=== PATIENT | male | born 1995 | race Caucasian/White ===

== ENCOUNTER 2016-12-18 16:46 | Emergency (ER) | payer SELFPAY ==
[~2016-12-18] VITALS: Ht 175.3 cm; Wt 73.8 kg
[2016-12-18 16:53] VITALS: Ht 175.3 cm; Wt 73.8 kg
[2016-12-18] MEDS ORDERED: MTR800 PO (17:08)
[2016-12-18] MEDS ORDERED: KETOROLAC TROMETHAMINE 30 MG/ML VIAL IV STA (17:23)
[2016-12-18] MEDS ORDERED: SODIUM CHLORIDE 0.9% 1000ML 1,000 ML IV STA (17:23)
[2016-12-18 18:00] LABS: BASO % 0.7 %; BASO ABS # 0.05 K/uL (0-0.2); COMPLETE YES; EOS % 4.8 %; HEMATOCRIT 45.7 % (42-52); IG% 0.1 %; LYMPH % 41.4 %; LYMPH ABS # 2.86 K/uL (1.2-3.4); MEAN CORPUSCULAR HEMOGLOBIN 31.9 pg (25-34); MEAN PLATELET VOLUME 9.7 fL (7.4-10.4); MONO % 10.6 %; NEUT % 42.4 %; PLATELET COUNT 230 K/uL (130-400); RED BLOOD COUNT 5.02 M/uL (4.7-6.1)
[2016-12-18 18:10] LABS: URINE APPEARANCE TURBID (CLEAR); URINE BILIRUBIN NEG (NEG); URINE COLOR YELLOW; URINE EPITHELIAL CELL AUTO 0-5 /lpf (0-5); URINE NITRITE NEG (NEG); URINE SPECIFIC GRAVITY 1.019 (1.000-1.030); UROBILINOGEN NEG (NEG); ZZUR CULT IF INDIC CLEAN CATCH NO
--- NOTE | 2016-12-18 18:11 | DIAGNOSTIC IMAGING REPORT ---
HEAD CT NONCONTRAST CT DOSE: 691.05 mGy.cm HISTORY: Headache NICHOLS - confusion TECHNIQUE: Multiaxial CT images of the head were performed without the use of intravenous contrast. Comparison: None. Findings: The paranasal sinuses and mastoid air cells are clear. The calvarium and skull base are intact. The ventricles and sulci are within normal limits. There is no mass, hematoma, midline shift, or acute infarct. Impression: No acute intracranial abnormality. Electronically signed by: Binh Dietz M.D. 12/18/2016 6:10 PM Dictated Date/Time: 12/18/2016 6:10 PM
[2016-12-18 18:24] LABS: ALT/SGPT 27 U/L (12-78); AST/SGOT 18 U/L (15-37); BLOOD UREA NITROGEN 11 mg/dl (7-18); BUN/CREATININE RATIO 14.7 (10-20); CALCIUM 8.9 mg/dl (8.5-10.1); CARBON DIOXIDE 29 mmol/L (21-32); CHLORIDE 106 mmol/L (98-107); CREATININE 0.73 mg/dl (0.60-1.40); GLUCOSE 82 mg/dl (70-99); POTASSIUM 3.9 mmol/L (3.5-5.1); SODIUM 141 mmol/L (136-145)
[2016-12-18 18:25] LABS: MANUAL MICROSCOPIC REQUIRED? NO; REVIEW REQ? NO
[2016-12-18 18:26] LABS: ALKALINE PHOSPHATASE 69 U/L (45-117)
[2016-12-18 18:49] LABS: BENZODIAZEPINE, URINE NEG (NEG); COCAINE,URINE NEG (NEG); PHENCYCLIDINE, URINE NEG (NEG)
--- NOTE | 2016-12-18 19:03 | DIAGNOSTIC IMAGING REPORT ---
LUMBAR SPINE 2 OR 3 VIEWS CLINICAL HISTORY: lower back pain pain COMPARISON STUDY: None FINDINGS: Normal study IMPRESSION: Normal study Electronically signed by: Binh Dietz M.D. 12/18/2016 7:01 PM Dictated Date/Time: 12/18/2016 7:01 PM
[2016-12-18 19:46] VITALS: BP 140/89; PULSE 65; TEMP 37.1; O2SAT 100
--- NOTE | 2016-12-18 19:52 | EMERGENCY ROOM VISIT NOTE ---
History Report prepared by Lurdes: Brisa Serna Under the Supervision of: Dr. Hima Malhotra D.O. First contact with patient: 17:06 Chief Complaint: BACK PAIN Stated Complaint: BACK/LEG/KNEE PAIN, CONSTIPATION, DILATED PUPILS History of Present Illness The patient is a 21 year old male who presents to the Emergency Room with complaints of worsening lower back pain starting 1 month [employer]. 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 The patient states that he believes that he may have pinched his sciatic nerve. He states he was seen by a chiropractor but it did not improve his pain. The patient states that he is now having left hip pain and left thigh pain when he tightens or relaxes his thigh muscles. The patient states the pain does not seem to radiate down his buttock or down the back of his leg. He denies any numbness or weakness in his hands or legs. The patient states that he has been having anxiety attacks over the last few months where he feels his heart pounding, sweating palms, and shortness of breath but denies any tingling in feet or hands. The patient states that the attacks usually occur when he is thinking about dangerous activities such as climbing near power lines. He states that he has not had anxiety attacks in the past. He states that he has no past psychiatric problems and denies any suicidal or homicidal thoughts. The patient's family states that the patient has also been acting and talking differently over the last few months. She states that about 2 weeks ago the patient had an episode where he was talking but the information was very random and did not make sense in the conversation. She states that since that episode he has been acting more distant and not as interactive as well as has intermittent slurred speech. The patient states that he does not notice that this is occurring but states that all the people he interacts with has notice it. He states that he does smoke marijuana almost every day and drink alcohol but states that this does not always occur after smoking and drinking. The patient's family also states that the patient's pupils have been dilating abnormally recently. The patient states that he does not take medication regularly. He states that he did have some chest pain today but that resolved. He denies any abdominal pain, nausea, vomiting, diarrhea, or fevers. Source of History: patient, family Onset: 1 month [employer] Position: back (lower) Timing: worsening Associated Symptoms: + SOB (with anxiety attacks), + chest pain, No abdominal pain, No diarrhea, No fevers, No nausea, No vomiting Note: Associated symptoms: left hip pain, left thigh pain when he tightens or relaxes his thigh muscles, anxiety attacks with heart pounding, sweaty palms, episodes of acting and talking differently over the last few months. Patient denies tingling in hands or feet, suicidal or homicidal thoughts. Review of Systems See HPI for pertinent positives & negatives. A total of 10 systems reviewed and were otherwise negative. Past Medical & Surgical Medical Problems: (1) No Known Active Medical Problems Family History Diabetes mellitus Hypertension Social History Smoking Status: Current Every Day Smoker Alcohol Use: none Marital Status: single Housing Status: lives with family Current/Historical Medications Scheduled Ibuprofen (Ibuprofen), 800 MG PO BID Allergies Coded Allergies: No Known Allergies (Unverified , 12/18/16) Physical Exam Vital Signs Date Time Temp Pulse Resp B/P Pulse Ox O2 Delivery O2 Flow Rate FiO2 12/18/16 19:07 65 18 140/89 100 Room Air 12/18/16 16:53 37.1 84 18 135/83 98 Room Air Physical Exam GENERAL: sitting up in bed, disheveled, nontoxic, no acute distress. EYE EXAM: normal conjunctiva, PERRL and EOM's intact OROPHARYNX: no exudate, no erythema, lips, buccal mucosa, and tongue normal and mucous membranes are moist NECK: supple, no nuchal rigidity, no adenopathy, non-tender LUNGS: Clear to auscultation. Normal chest wall mechanics HEART: no murmurs, S1 normal and S2 normal ABDOMEN: abdomen soft, non-tender, normo-active bowel sounds, no masses, no rebound or guarding. BACK: Minimal tenderness in the lower/mid lumbar spine, no tenderness in the paraspinal region. SKIN: no rashes and no bruising UPPER EXTREMITIES: upper extremities are grossly normal. LOWER EXTREMITIES: No pitting edema. Flexion and extension of the hip/knee/ankle /EHL 5/5 bilaterally. Gross sensation intact, patellar and Achilles reflexes are 2/4. NEURO EXAM: Normal sensorium, cranial nerves II-XII intact, normal speech, no weakness of arms, no weakness of legs. Gross sensation intact. Drift and Finger to nose intact Medical Decision & Procedures ER Provider Diagnostic Interpretation: CT:Per my review, radiologist interpretation. HEAD CT NONCONTRAST CT DOSE: 691.05 mGy.cm HISTORY: Headache NICHOLS - confusion TECHNIQUE: Multiaxial CT images of the head were performed without the use of intravenous contrast. Comparison: None. Findings: The paranasal sinuses and mastoid air cells are clear. The calvarium and skull base are intact. The ventricles and sulci are within normal limits. There is no mass, hematoma, midline shift, or acute infarct. Impression: No acute intracranial abnormality. Electronically signed by: Binh Dietz M.D. 12/18/2016 6:10 PM Dictated Date/Time: 12/18/2016 6:10 PM Radiology results as stated below per my review and the radiologist's interpretation: LUMBAR SPINE 2 OR 3 VIEWS CLINICAL HISTORY: lower back pain pain COMPARISON STUDY: None FINDINGS: Normal study IMPRESSION: Normal study Electronically signed by: Binh Dietz M.D. 12/18/2016 7:01 PM Dictated Date/Time: 12/18/2016 7:01 PM Laboratory Results 12/18/16 17:35 Red Blood Count 5.02, Mean Corpuscular Volume 91.0, Mean Corpuscular Hemoglobin 31.9, Mean Corpuscular Hemoglobin Concent 35.0, Mean Platelet Volume 9.7, Neutrophils (%) (Auto) 42.4, Lymphocytes (%) (Auto) 41.4, Monocytes (%) (Auto) 10.6, Eosinophils (%) (Auto) 4.8, Basophils (%) (Auto) 0.7, Neutrophils # (Auto ) 2.92, Lymphocytes # (Auto) 2.86, Monocytes # (Auto) 0.73, Eosinophils # (Auto ) 0.33, Basophils # (Auto) 0.05 12/18/16 17:35 Test 12/18/16 17:30 12/18/16 17:35 Urine Color YELLOW Urine Appearance TURBID (CLEAR) Urine pH 8.0 (4.5-7.5) Urine Specific Line [place] 1.019 (1.000-1.030) Urine Protein NEG (NEG) Urine Glucose (UA) NEG (NEG) Urine Ketones NEG (NEG) Urine Occult Blood NEG (NEG) Urine Nitrite NEG (NEG) Urine Bilirubin NEG (NEG) Urine Urobilinogen NEG (NEG) Urine Leukocyte Esterase NEG (NEG) Urine WBC (Auto) 0 /hpf (0-5) Urine RBC (Auto) 0-4 /hpf (0-4) Urine Hyaline Casts (Auto) 1-5 /lpf (0-5) Urine Epithelial Cells (Auto) 0-5 /lpf (0-5) Urine Bacteria (Auto) NEG (NEG) Urine Opiates Screen NEG (NEG) Urine Methadone, Qualitative NEG (NEG) Urine Barbiturates NEG (NEG) Urine Phencyclidine (PCP) Level NEG (NEG) Ur Amphetamine/Methamphetamine NEG (NEG) MDMA (Ecstasy) Screen NEG (NEG) Urine Benzodiazepines Screen NEG (NEG) Urine Cocaine Metabolite NEG (NEG) Urine Marijuana (THC) POS (NEG) Ethyl Alcohol mg/dL < 3.0 mg/dl (0-3) White Blood Count 6.90 K/uL (4.8-10.8) Red Blood Count 5.02 M/uL (4.7-6.1) Hemoglobin 16.0 g/dL (14.0-18.0) Hematocrit 45.7 % (42-52) Mean Corpuscular Volume 91.0 fL (80-100) Mean Corpuscular Hemoglobin 31.9 pg (25-34) Mean Corpuscular Hemoglobin Concent 35.0 g/dl (32-36) Platelet Count 230 K/uL (130-400) Mean Platelet Volume 9.7 fL (7.4-10.4) Neutrophils (%) (Auto) 42.4 % Lymphocytes (%) (Auto) 41.4 % Monocytes (%) (Auto) 10.6 % Eosinophils (%) (Auto) 4.8 % Basophils (%) (Auto) 0.7 % Neutrophils # (Auto) 2.92 K/uL (1.4-6.5) Lymphocytes # (Auto) 2.86 K/uL (1.2-3.4) Monocytes # (Auto) 0.73 K/uL (0.11-0.59) Eosinophils # (Auto) 0.33 K/uL (0-0.5) Basophils # (Auto) 0.05 K/uL (0-0.2) RDW Standard Deviation 44.1 fL (36.4-46.3) RDW Coefficient of Variation 13.3 % (11.5-14.5) Immature Granulocyte % (Auto) 0.1 % Immature Granulocyte # (Auto) 0.01 K/uL (0.00-0.02) Anion Gap 6.0 mmol/L (3-11) Est Creatinine Clear Calc Drug Dose 158.8 ml/min Estimated GFR () > 150.0 Estimated GFR (Non- 131.7 BUN/Creatinine Ratio 14.7 (10-20) Calcium Level 8.9 mg/dl (8.5-10.1) Total Bilirubin 0.4 mg/dl (0.2-1) Direct Bilirubin < 0.1 mg/dl (0-0.2) Aspartate Amino Transf (AST/SGOT) 18 U/L (15-37) Alanine Aminotransferase (ALT/SGPT) 27 U/L (12-78) Alkaline Phosphatase 69 U/L (45-117) Total Protein 7.2 gm/dl (6.4-8.2) Albumin 4.5 gm/dl (3.4-5.0) Lipase 131 U/L (73-393) Laboratory results per my review. Medications Administered Medications (Trade) Dose Ordered Sig/Mirlande Route Start Time Stop Time Status Last Admin Dose Admin Sodium Chloride (Nss 1000ml) 1,000 ml @ 999 mls/hr Q1H1M STAT IV 12/18/16 17:23 12/18/16 18:23 DC 12/18/16 17:50 999 MLS/HR Ketorolac Tromethamine (Toradol Inj) 30 mg NOW STAT IV 12/18/16 17:23 12/18/16 17:25 DC 12/18/16 17:49 30 MG ECG Indication: altered mental status Rate (beats per minute): 59 Rhythm: sinus bradycardia Findings: no ectopy, other (Normal axis) ED Course ED COURSE: Vital signs were reviewed and showed normal The patients medical record was reviewed The above diagnostic studies were performed and reviewed. ED treatments and interventions as stated above. 1610: The patient was evaluated in room C4. A complete history and physical examination was performed. 1723: Ordered Toradol Inj 30 mg IV, Sodium Chloride 1,000 ml @ 999 mls/hr IV. 1900: I revaluated the patient and they were resting comfortably. 1930: Upon reevaluation, the patient is resting comfortably.I discussed my findings with the patient and he understands and agrees with the treatment plan. Based on the patients age, coexisting illnesses, exam and lab findings the decision to treat as an outpatient was made.The patient remained stable while under my care.The patient appeared well at the time of discharge. Medical Decision Differential diagnoses includes but is not limited to toxic, metabolic, infectious, traumatic, cardiac, neurologic, hematologic, psychiatric and inflammatory etiologies. Patient is a 21-year-old male who presents the ER for left lower back pain which is been present for the past month. 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 It has improved but is still present. He has no weakness or numbness in his legs. He is able to move his bowels and urinate. Neurologically completely intact. No signs of cauda equina. X-rays of lumbar spine were unremarkable. Mom also notes some which the patient does confirm. He is completely awake alert and oriented. She notes that it is not present today but rather was present about 2 weeks ago. He also has not been acting himself and has been normal but more reserved. CBC along with BMP, LFTs, bilirubin and lipase was normal. Tox was positive for marijuana which the patient did admit to. He does smoke daily. Alcohol was negative. UA was negative. EKG was unremarkable. 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 He has no other complaints at this time. With him being completely at baseline and unremarkable workup with a negative CT head was discharged to follow-up with PCP. I did suggest the importance of stopping smoking marijuana as I do feel this is the likely cause since he does this daily. Discussed with Pt concerning signs and symptoms to watch out for. Pt was instructed to follow up with their PCP and discussed with the patient their option to return to the ED at anytime for persistent or worsening symptoms. The appropriate anticipatory guidance and out-patient management, including indications for return to the emergency department, were explained at length to the patient and understood. Impression Primary Impression: Strain of lumbar region Additional Impression: Marijuana abuse Scribe Attestation The scribe's documentation has been prepared under my direction and personally reviewed by me in its entirety. I confirm that the note above accurately reflects all work, treatment, procedures, and medical decision making performed by me. Departure Information Dispostion Home / Self-Care Referrals No Doctor, Assigned (PCP) Forms HOME CARE DOCUMENTATION FORM, IMPORTANT VISIT INFORMATION Patient Instructions My [facility] Additional Instructions Please follow up with your primary care doctor with in the next 24 hours. Any worsening of your symptoms, please return to the ED immediately. This includes fevers greater than 100.4, weakness or complete numbness in your legs, confusion , or any other concerning signs or symptoms from your standpoint. Please try to refrain from using marijuana. Problem Qualifiers Primary Impression: Strain of lumbar region Encounter type: sequela Qualified Codes: S39.012S - Strain of muscle, fascia and tendon of lower back, sequela
== END 2016-12-18 19:40 | disposition home or self-care (01) ==
LOC: C.EDB 16:48 → C.EDC 19:40
DX: S39.012A Strain of muscle, fascia and tendon of lower back, initial encounter (principal); X58.XXXA Exposure to other specified factors, initial encounter; Y92.89 Other specified places as the place of occurrence of the external cause; Y99.0 Civilian activity done for income or pay; F17.200 Nicotine dependence, unspecified, uncomplicated; Z82.49 Family history of ischemic heart disease and other diseases of the circulatory system; Z83.3 Family history of diabetes mellitus